=== PATIENT | female | born 1950 | race Two or more races ===

== ENCOUNTER → 2020-02-17 | Outpatient (CLI) | payer MEDICARE | END | disposition home or self-care (01) | LOC: RAD 13:03 | PROVIDERS: ATTEND Internal Medicine Gastroenterology | DX: K22.8 Other specified diseases of esophagus (principal); K44.9 Diaphragmatic hernia without obstruction or gangrene; E66.09 Other obesity due to excess calories; R13.19 Other dysphagia; Z79.899 Other long term (current) drug therapy | CPT/HCPCS: 74220 ==

== ENCOUNTER → 2020-09-21 | Outpatient (CLI) | payer MEDICARE ==
[~2020-09-21] MED LIST: ALBU90AE2 INH; ATOR20TA86 PO; FLUT250D INH; INSU100I11 SQ-INSULIN; INSU100I13 SQ-INSULIN; IRBE1TAB37 PO; LEVO75TA PO; LINA5TAB PO; OMEG1CAP34 PO; OMEP20CA20 PO
== END | disposition home or self-care (01) ==
LOC: CFH 14:18
PROVIDERS: ATTEND Internal Medicine Nephrology
DX: E11.22 Type 2 diabetes mellitus with diabetic chronic kidney disease (principal); I12.9 Hypertensive chronic kidney disease with stage 1 through stage 4 chronic kidney disease, or unspecified chronic kidney disease; N18.31 Chronic kidney disease, stage 3a
CPT/HCPCS: 76770